=== PATIENT | female | born 1975 | race Caucasian/White ===

== ENCOUNTER 2019-05-05 15:20 | Emergency (ER) | payer OTHER ==
[2019-05-05 15:46] VITALS: BP 113/80
--- NOTE | 2019-05-05 15:49 | UC ---
Hand/Wrist HPI - HPI Summary HPI Summary: 44 yo female presents with LEFT thumb/wrist pain. She tells me that about 2 weeks ago she drove to [place] and back. Since that time she has had pain in her left dorsal thumb and radial wrist. She has been taking naproxen with little relief. She also saw a chiropractor who "adjusted" the area and she had no change. Pain is worse with movement and gripping. She denies specific injury. She is right hand dominant. Denies numbness or tingling. - History Of Current Complaint Chief Complaint: UCUpperExtremity Stated Complaint: LEFT WRIST PAIN Time Seen by Provider: 05/05/19 15:48 Hx Obtained From: Patient Hx Last Menstrual Period: 04/07/2019 Onset/Duration: Gradual Onset Severity Initially: Moderate Severity Currently: Moderate Pain Intensity: 8 - Allergies/Home Medications Allergies/Adverse Reactions: Allergies Allergy/AdvReac Type Severity Reaction Status Date / Time No Known Allergies Allergy Verified 05/05/19 15:42 Home Medications: Home Medications NK [No Home Medications Reported] 05/05/19 [History Confirmed 05/05/19] PMH/Surg Hx/FS Hx/Imm Hx - Additional Past Medical History Additional PMH: None - Surgical History Surgical History: Yes Surgery Procedure, Year, and Place: Tubal ligation - Family History Known Family History: Positive: Non-Contributory - Social History Occupation: Employed Full-time Lives: With Family Alcohol Use: Occasionally Substance Use Type: None Smoking Status (MU): Never Smoked Tobacco Review of Systems All Other Systems Reviewed And Are Negative: No Constitutional: Positive: Negative Skin: Positive: Negative Respiratory: Positive: Negative Cardiovascular: Positive: Negative Neurovascular: Positive: Negative Musculoskeletal: Positive: Other: - Left thumb/wrist pain Neurological: Positive: Negative Psychological: Positive: Negative Physical Exam - Summary Physical Exam Summary: GENERAL: NAD. WDWN. No pain distress. SKIN: No rashes, sores, lesions, or open wounds. CHEST: No accessory muscle use. Breathing comfortably and in no distress. CV: Pulses intact radial and ulnar. Cap refill <2seconds MSK: Mild TTP about left thumb along EPB and APL. Positive Devin. Decreased reexaminer strength due to pain. No edema or obvious bony deformities. No snuffbox tenderness. NEURO: Alert. Sensations intact hand and all fingers. PSYCH: Age appropriate behavior. Triage Information Reviewed: Yes Vital Signs: Initial Vital Signs Temp 98.8 F 05/05/19 15:42 Pulse 73 05/05/19 15:42 Resp 18 05/05/19 15:42 BP 113/80 05/05/19 15:42 Pulse Ox 100 05/05/19 15:42 Vital Signs Reviewed: Yes Diagnostics - Radiology Wrist XR Radiology Interpretation Completed By: Radiologist Summary of Radiographic Findings: IMPRESSION: NO EVIDENCE FOR FRACTURE. Hand/Wrist Course/Dx - Course Course Of Treatment: XR as above. Discussed results with pt. Suspect de quervain tenosynovitis. Pt was placed in a thumb spica splint and advised to continue NSAIDs as directed. Advised to schedule with physical therapy hand specialist for further treatment. If symptoms do not improve - f/u with Orthopedics. - Differential Dx/Diagnosis Provider Diagnosis: De Quervain's tenosynovitis, left Discharge ED - Sign-Out/Discharge Documenting (check all that apply): Patient Departure All imaging exams completed and their final reports reviewed: Yes - Discharge Plan Condition: Stable Disposition: HOME Patient Education Materials: De Quervain Disease (ED), Tenosynovitis (ED) Referrals: Myra Ray [Primary Care Provider] - Darwin Dodson MD [Medical Doctor] - If Needed Additional Instructions: If you develop a fever, shortness of breath, chest pain, new or worsening symptoms - please call your PCP or go to the ED immediately. 1) Rest your thumb/wrist and use the brace as much as possible 2) Please schedule an appointment with Physical therapy for further treatment of your thumb/wrist pain 3) May take ibuprofen or naproxen as directed for discomfort 4) If your symptoms do not improve within 1-2 weeks - please call Orthopedics at the number below to schedule an appointment for further evaluation - Billing Disposition and Condition Condition: STABLE Disposition: Home - Attestation Statements Provider Attestation: Per institutional requirements, I have reviewed the chart, however, I was not consulted specifically or made aware of this patient by the midlevel provider. I did not personally evaluate, interact with , or disposition this patient.
== END 2019-05-05 16:18 | disposition home or self-care (01) ==
LOC: MERGE 15:20 → UCEAST 15:20
DX: M65.4 Radial styloid tenosynovitis [de Quervain] (principal)
CPT/HCPCS: 99212; G0463